=== PATIENT | female | born 1980 | race Caucasian/White ===

== ENCOUNTER → 2021-03-10 | Outpatient (CLI) | payer BC | LOC: MAMO 02-17 09:30 | DX: Z12.31 Encounter for screening mammogram for malignant neoplasm of breast (principal); N64.89 Other specified disorders of breast | CPT/HCPCS: 77063; 77067 ==

== ENCOUNTER → 2021-08-13 | Outpatient (CLI) | payer BC | LOC: HEART 5 08:00 | DX: I73.9 Peripheral vascular disease, unspecified (principal) ==